=== PATIENT | male | born 1965 | race Caucasian/White ===

== ENCOUNTER 2018-05-01 16:13 | Emergency (ER) | payer OTHER ==
[~2018-05-01] VITALS: Ht 188 cm; Wt 98.9 kg
[2018-05-01] MEDS ORDERED: TIROSINT100 MCG PO (16:22)
[2018-05-01] MEDS ORDERED: LOPRESSOR25 PO (16:23)
[2018-05-01 16:37] LABS: ABSOLUTE BASOPHILS 0.1 thou/uL (0.0-0.2); ABSOLUTE EOSINOPHILS 0.2 thou/uL (0.0-0.7); ABSOLUTE LYMPHOCYTES 3.1 thou/uL (0.8-5.3); ABSOLUTE MONOCYTES 1.4 thou/uL (0.0-1.2); ABSOLUTE NEUTROPHILS 2.9 thou/uL (1.6-8.1); BASOPHILS 1.2 %; EOSINOPHILS 2.1 %; HEMOGLOBIN 15.9 gm/dL (14.0-18.0); LYMPHOCYTES 40.6 %; MCH 30.3 pg (26.0-34.0); MCHC 34.5 g/dL (28.0-37.0); MONOCYTES 18.3 %; MPV 8.2 fl. (7.2-11.1); NUCLEATED RBCS 0 /100WBC; PLATELET COUNT* 327 thou/uL (150-400); POLYS 37.8 %; RBC 5.23 mil/uL (4.50-6.00); RDW-CV 13.5 % (10.5-14.5); WBC 7.6 thou/uL (4.0-11.0)
[2018-05-01 16:41] LABS: ANION GAP 12 mmol/L (7-16); BUN 18 mg/dL (7-18); CALCIUM 8.9 mg/dL (8.5-10.1); CHLORIDE 103 mmol/L (98-107); CO2 26 mmol/L (21-32); CREATININE 1.4 mg/dL (0.6-1.3); GLUCOSE 104 mg/dL (70-99); POTASSIUM 3.4 mmol/L (3.5-5.1); SODIUM 141 mmol/L (136-145)
[2018-05-01 16:52] LABS: ALBUMIN 4.2 g/dL (3.4-5.0); ALKALINE PHOSPHATASE 57 U/L (46-116); LIPASE 301 U/L (73-393); NT-PRO BRAIN NAT PEPTIDE 46 pg/mL (<300); SGOT 20 U/L (15-37); SGPT 20 U/L (30-65); TOTAL BILIRUBIN 0.7 mg/dL (<0.1-1.0); TOTAL PROTEIN 7.7 g/dL (6.4-8.2); TROPONIN-I LEVEL <0.06 ng/mL (<0.06)
[2018-05-01 16:57] LABS: INR 1.1; PROTIME 11.3 Seconds (9.20-11.50)
[2018-05-01 17:56] LABS: AMP/METHAMP Negative (Negative); BARBITURATES Negative (Negative); BENZODIAZEPINES Negative (Negative); COCAINE Negative (Negative); METHADONE Negative (Negative); OPIATES Negative (Negative); PCP Negative (Negative); THC Negative (Negative)
[2018-05-01 18:16] VITALS: BP 137/85
--- NOTE | 2018-05-03 12:26 | EKG ---
[place] [address] ELECTROCARDIOGRAM REPORT Name: WILD LINCOLN Room: [facility]#: [id number] Admission: 05/01/18 Attend Phys: Discharge: 05/01/18 Date of : 69 Report #: [id number] THIS REPORT FOR: //name// [facility] ED Test Date: 2018-05-01 Test Time: 16:18:32 Pat Name: WILD LINCOLN Department: Room: Gender: M Roving Department End Finder: ESTEFANY : 1965 Requested By: Uday Musa Order Number: [id number] MD: Hank Soriano Measurements Intervals [place] Rate: 134 P: 234 PA: 110 QRS: 19 QRSD: 128 T: 22 QT: 310 QTc: 463 Interpretive Statements Sinus or ectopic atrial tachycardia ST depr, consider ischemia, inferior leads Borderline ST elevation, anterior leads Compared to ECG 12/17/2008 18:54:42 Possible ischemia now present ST (T wave) deviation now present Sinus rhythm no longer present Electronically Signed On 05-03-2018 12:25:58 CONTROL TOWER OPERATOR by Hank Soriano [email or web address] <ELECTRONICALLY SIGNED> By: Hank Soriano MD, FACC 05/03/18 1225 1618 1618 Hank Soriano MD, FAC /EPI
--- NOTE | 2018-05-03 12:26 | EKG ---
[place] [address] ELECTROCARDIOGRAM REPORT Name: WILD LINCOLN Room: [facility]#: [id number] Admission: 05/01/18 Attend Phys: Discharge: 05/01/18 Date of : 69 Report #: [id number] THIS REPORT FOR: //name// [facility] ED Test Date: 2018-05-01 Test Time: 17:10:19 Pat Name: WILD LINCOLN Department: Room: Gender: M Butcher: [place] GARCIA : 1965 Requested By: Uday Musa Order Number: [id number] MD: Hank Soriano Measurements Intervals [place] Rate: 71 P: 49 SD: 190 QRS: 4 QRSD: 89 T: 40 QT: 384 QTc: 418 Interpretive Statements Sinus rhythm Compared to ECG 12/17/2008 18:54:42 No significant changes Electronically Signed On 05-03-2018 12:26:18 ANESTHESIOLOGY PHYSICIAN ASSISTANT by Hank Soriano [email or web address] <ELECTRONICALLY SIGNED> By: Hank Soriano MD, [facility] 05/03/18 1226 1710 1710 Hank Soriano MD, FACC /EPI
== END 2018-05-01 18:17 | disposition home or self-care (01) ==
LOC: M.ERS 16:13
PROVIDERS: Emergency Medicine
DX: I48.92 Unspecified atrial flutter (principal)